=== PATIENT | male | born 1965 | race Two or more races ===

== ENCOUNTER 2024-07-24 13:55 | Emergency (ER) | payer OTHER ==
[~2024-07-24] VITALS: Ht 177.8 cm; Wt 83.9 kg
[~2024-07-24 13:55] MED LIST: GILTUSS TR TAB1 EACH PO; LEVAQUIN750 MG PO; MEDROLPACK PO; PROVENTIL3 ML/2.5 M IH; SINGULAIR10 MG PO
[2024-07-24] MEDS ORDERED: METHYLPREDNISOLONE SOD SUCC 40 MG VIAL IM STA (15:06)
[2024-07-24] MEDS ORDERED: IPRATROPIUM/ALBUTEROL SULFATE 3 ML AMPUL.NEB IH SCH (15:15)
[2024-07-24] MEDS ORDERED: METHYLPREDNISOLONE SOD SUCC 40 MG VIAL ONE (15:27)
[2024-07-24 16:03] LABS: HEMATOCRIT 45.4 % (39.0-48.0); HEMOGLOBIN 15.7 g/dL (13-16.00); MEAN CORPUSCULAR HEMOGLOBIN 29.2 pg (27.00-32.0); MEAN CORPUSCULAR HGB CONC 34.7 g/dl (32.0-36.0); PLATELET COUNT 242 K/uL (150-450); RED CELL DISTRIBUTION WIDTH 13.4 % (11.5-14.5)
[2024-07-24] MEDS ORDERED: IPRATROPIUM/ALBUTEROL SULFATE 3 ML AMPUL.NEB IH ONE (17:26)
[2024-07-24] MEDS ORDERED: CHILDREN'S FLO5.9 ML NASAL (19:46)
[2024-07-24] MEDS ORDERED: ALL DAY ALLERGY10 M3 PO (19:46)
[2024-07-24] MEDS ORDERED: ZITHROMAX500 MG PO (19:51)
== END 2024-07-24 20:07 | disposition home or self-care (01) ==
LOC: ER 13:57
DX: J32.0 Chronic maxillary sinusitis (principal); Z20.822 Contact with and (suspected) exposure to COVID-19; Z88.0 Allergy status to penicillin; Z88.8 Allergy status to other drugs, medicaments and biological substances